=== PATIENT | male | born 1995 | race Hispanic/Latino ===

== ENCOUNTER 2024-03-09 00:59 | Emergency (ER) | payer SELFPAY ==
[2024-03-09 01:09] VITALS: BP 136/93
[2024-03-09] MEDS ORDERED: SODIUM CHLORIDE 0.9% 1,000 ML IV STA (01:21)
[2024-03-09] MEDS ORDERED: KETOROLAC TROMETHAMINE 30 MG/ML SDV IV ONE (01:25)
[2024-03-09] MEDS ORDERED: PROMETHAZINE HCL 25 MG/ML AMP IV ONE (01:25)
[2024-03-09 01:43] LABS: BASO% 0.2 % (0-3); EOS% 0.8 % (0-8); HEMOGLOBIN 15.7 g/dl (14.0-18.0); IMMATURE GRANULOCYTES 0.2 % (0.0-5.0); LYMPH% 6.6 % (15-41); MEAN CELL VOLUME 92.3 fL CALC (80.0-100.0); MEAN CORPUSCULAR HGB 30.8 pG CALC (26.0-32.0); MEAN CORPUSCULAR HGB CONC 33.4 g/dL CAL (32.0-36.0); MONO% 5.4 % (2-13); NEUT# 17.85 thou/uL (1.82-7.42); NEUT% 86.8 % (42-76); RED BLOOD COUNT 5.09 mill/uL (4.70-6.10); RED CELL DISTRI WIDTH 11.7 % (11.5-15.5)
[2024-03-09 01:46] LABS: ALBUMIN 4.9 g/dL (3.2-5.0); BILIRUBIN, TOTAL 0.5 mg/dL (0.2-1.3); POTASSIUM 4.1 mmol/l (3.5-5.1); TOTAL PROTEIN 8.1 g/dL (6.3-8.2)
[2024-03-09] MEDS ORDERED: PROMETHAZINE HY25 M1 PO (03:18)
[2024-03-09 03:26] VITALS: BP 136/93
== END 2024-03-09 03:26 | disposition home or self-care (01) | DRG 392 ==
LOC: ED 00:59
PROVIDERS: Family Medicine
DX: K52.9 Noninfective gastroenteritis and colitis, unspecified (principal); Z87.442 Personal history of urinary calculi; Z20.822 Contact with and (suspected) exposure to COVID-19
CPT/HCPCS: J2550